=== PATIENT | male | born 1985 | race Caucasian/White ===

== ENCOUNTER 2017-01-07 19:16 | Emergency (ER) | payer SELFPAY ==
[2017-01-07] MEDS ORDERED: Sodium Chloride 0.9% 1,000 ML IV SCH (20:15)
--- NOTE | 2017-01-07 20:40 | EDM.PDOC ---
ED HPI GENERAL MEDICAL PROBLEM - General Chief Complaint: Abdominal Pain Stated Complaint: ABDOMINAL PAIN Time Seen by Provider: 01/07/17 19:41 Source of Information: Reports: Patient, RN Notes Reviewed History Limitations: Reports: No Limitations - History of Present Illness INITIAL COMMENTS - FREE TEXT/NARRATIVE: The patient states that he has had right upper quadrant abdominal pain for the past 3 months. It has been constant, but has been progressively worsening. He describes the pain as sharp and stabbing in character. He has not identified any modifiers. He has had nausea and vomiting, but no constipation, diarrhea, or urinary symptoms. He has had a subjective fever, although is afebrile here in the ED. The patient has not had a medical evaluation of this. He states that he does not have a PCP, and has not had a general physical examination for about 3 years. Additionally, the patient reports that he has been drinking approximately 1 L of vodka per day for the past 7 years, and he reports that he is currently homeless. Right Upper Abdomen Pain Score (Numeric/FACES): 9 - Related Data Allergies Allergy/AdvReac Type Severity Reaction Status Date / Time No Known Allergies Allergy Verified 01/07/17 19:41 Home Meds: Home Meds . [No Known Home Meds] 01/07/17 [History] Past Medical History - Past Surgical History HEENT Surgical History: Reports: Myringotomy w Tube(s) (bilateral), Tonsillectomy Social & Family History - Tobacco Use Smoking Status *Q: Current Every Day Smoker Years of Tobacco use: 20 Packs/Tins Daily: 0.4 - Caffeine Use Caffeine Use: Reports: None - Alcohol Use Alcohol Use History: Yes Days Per Week of Alcohol Use: 7 Number of Drinks Per Day: 23 Total Drinks Per Week: 161 Date of Last Drink: 01/07/17 Alcohol Use Frequency: Daily - Recreational Drug Use Recreational Drug Use: No - Living Situation & Occupation Living situation: Reports: Single, Other (Homeless) Occupation: Unemployed ED ROS GENERAL - Review of Systems Review Of Systems: See Below Constitutional: Reports: No Symptoms HEENT: Reports: Nosebleed Respiratory: Reports: Cough Cardiovascular: Reports: No Symptoms Endocrine: Reports: No Symptoms GI/Abdominal: Reports: Abdominal Pain (RUQ), Nausea, Vomiting : Reports: No Symptoms Musculoskeletal: Reports: No Symptoms Skin: Reports: No Symptoms Neurological: Reports: No Symptoms Psychiatric: Reports: No Symptoms Hematologic/Lymphatic: Reports: No Symptoms Immunologic: Reports: No Symptoms ED EXAM, GI/ABD - Physical Exam Exam: See Below Exam Limited By: No Limitations General Appearance: Alert, WD/WN, No Apparent Distress, Other (Strong smell of alcohol, but patient not clinically intoxicated) Eyes: Bilateral: Normal Appearance, EOMI Ears: Normal External Exam, Hearing Grossly Normal, Normal TMs Nose: Normal Inspection, No Blood Throat/Mouth: Normal Inspection, Normal Lips, Normal Voice, No Airway Compromise Head: Atraumatic, Normocephalic Neck: Normal Inspection, Full Range of Motion Respiratory/Chest: No Respiratory Distress, Lungs Clear, Normal Breath Sounds, No Accessory Muscle Use Cardiovascular: Normal Peripheral Pulses, Regular Rate, Rhythm, No Edema, No Gallop, No JVD, No Murmur, No Rub GI/Abdominal: Normal Bowel Sounds, Soft, No Organomegaly, No Distention, No Abnormal Bruit, No Mass, Tenderness (RUQ only. Nontender elsewhere.). No: Quijano's Sign (Male) Exam: Deferred Rectal (Males) Exam: Deferred Back Exam: Normal Inspection, Full Range of Motion, NT Extremities: Normal Inspection, Normal Range of Motion, No Pedal Edema, Normal Capillary Refill Neurological: Alert, Oriented, Normal Cognition, No Motor/Sensory Deficits Psychiatric: Normal Affect Skin Exam: Warm, Dry, Intact, Normal Color, No Rash Lymphatic: No Adenopathy EKG INTERPRETATION EKG Date: 01/07/17 Time: 21:46 Rhythm: other (Sinus tachycardia) Rate (beats/min): 102 [place]: normal P-wave: present QRS: normal ST-T: other (J-point elevation noted in V2, V3, V4.) QT: normal Comparison: NA - no prior EKG Course - Vital Signs Last Recorded V/S: Last Vital Signs Temp 36.6 C 01/07/17 19:36 Pulse 105 H 01/07/17 19:36 Resp 20 01/07/17 19:36 BP 133/99 H 01/07/17 19:36 Pulse Ox 93 L 01/07/17 19:36 - Orders/Labs/Meds Orders: Active Orders 24 hr Category Date Time Status EKG Documentation Completion [RC] STAT Care 01/07/17 21:35 Active Sodium Chloride 0.9% [Normal Saline] 1,000 ml Med 01/07/17 20:15 Active IV ASDIRECTED Medication Orders Sodium Chloride (Normal Saline) 1,000 mls @ 150 mls/hr IV ASDIRECTED ANTONIO Last Admin: 01/07/17 20:22 Dose: 150 mls/hr Labs: Laboratory Tests 01/07/17 01/07/17 01/07/17 Range/Units 20:10 20:10 20:10 WBC 6.56 (4.23-9.07) K/mm3 RBC 4.17 L (4.63-6.08) M/mm3 Hgb 15.1 (13.7-17.5) gm/L Hct 42.4 (40.1-51.0) % MCV 101.7 H (79.0-92.2) fl MCH 36.2 H (25.7-32.2) pg MCHC 35.6 H (32.2-35.5) g/dl RDW Std Deviation 52.4 H (35.1-43.9) fL Plt Count 194 (163-337) K/mm3 MPV 8.9 L (9.4-12.3) fl Neutrophils % (Manual) 50 (40-60) % Band Neutrophils % 0 (0-10) % Lymphocytes % (Manual) 44 H (20-40) % Atypical Lymphs % 0 % Monocytes % (Manual) 4 (2-10) % Eosinophils % (Manual) 2 (0.8-7.0) % Basophils % (Manual) 0 L (0.2-1.2) Platelet Estimate Adequate RBC Morph Comment Normal Sodium 145 (136-145) mEq/L Potassium 3.8 (3.5-5.1) mEq/L Chloride 105 (98-107) mEq/L Carbon Dioxide 26 (21-32) mEq/L Anion Gap 17.8 H (5-15) BUN 10 (7-18) mg/dL Creatinine 0.7 (0.7-1.3) mg/dL Est Cr Clr Drug Dosing 149.26 mL/min Estimated GFR (MDRD) > 60 (>60) mL/min BUN/Creatinine Ratio 14.3 (14-18) Glucose 96 (74-106) mg/dL Calcium 8.7 (8.5-10.1) mg/dL Total Bilirubin 0.7 (0.2-1.0) mg/dL AST 170 H (15-37) U/L ALT 111 H (16-63) U/L Alkaline Phosphatase 146 H (46-116) U/L Total Protein 7.6 (6.4-8.2) g/dl Albumin 3.6 (3.4-5.0) g/dl Globulin 4.0 gm/dL Albumin/Globulin Ratio 0.9 L (1-2) Lipase 165 (73-393) U/L TSH 3rd Generation 2.384 (0.358-3.74) uIU/mL Urine Color (Yellow) Urine Appearance (Clear) Urine pH (5.0-8.0) Ur Specific [place] (1.005-1.030) Urine Protein (Negative) Urine Glucose (UA) (Negative) Urine Ketones (Negative) Urine Occult Blood (Negative) Urine Nitrite (Negative) Urine Bilirubin (Negative) Urine Urobilinogen (0.2-1.0) Ur Leukocyte Esterase (Negative) Urine RBC (0-5) /hpf Urine WBC (0-5) /hpf Ur Epithelial Cells (0-5) /hpf Urine Bacteria (FEW) /hpf Urine Mucus (FEW) /hpf Salicylates (2.8-20) mg/dL Urine Opiates Screen (NEGATIVE) Ur Buprenorphine Scrn (NEGATIVE) Ur Oxycodone Screen (NEGATIVE) Urine Methadone Screen (NEGATIVE) Ur Propoxyphene Screen (NEGATIVE) Acetaminophen 0 L (10-30) ug/mL Ur Barbiturates Screen (NEGATIVE) Ur Tricyclics Screen (NEGATIVE) Ur Phencyclidine Scrn (NEGATIVE) Ur Amphetamine Screen (NEGATIVE) U Methamphetamines Scrn (NEGATIVE) U Benzodiazepines Scrn (NEGATIVE) U Cocaine Metab Screen (NEGATIVE) U Marijuana (THC) Screen (NEGATIVE) Ethyl Alcohol 0.34 (0.00) gm% 01/07/17 01/07/17 01/07/17 Range/Units 20:10 20:35 20:35 WBC (4.23-9.07) K/mm3 RBC (4.63-6.08) M/mm3 Hgb (13.7-17.5) gm/L Hct (40.1-51.0) % MCV (79.0-92.2) fl MCH (25.7-32.2) pg MCHC (32.2-35.5) g/dl RDW Std Deviation (35.1-43.9) fL Plt Count (163-337) K/mm3 MPV (9.4-12.3) fl Neutrophils % (Manual) (40-60) % Band Neutrophils % (0-10) % Lymphocytes % (Manual) (20-40) % Atypical Lymphs % % Monocytes % (Manual) (2-10) % Eosinophils % (Manual) (0.8-7.0) % Basophils % (Manual) (0.2-1.2) Platelet Estimate RBC Morph Comment Sodium (136-145) mEq/L Potassium (3.5-5.1) mEq/L Chloride (98-107) mEq/L Carbon Dioxide (21-32) mEq/L Anion Gap (5-15) BUN (7-18) mg/dL Creatinine (0.7-1.3) mg/dL Est Cr Clr Drug Dosing mL/min Estimated GFR (MDRD) (>60) mL/min BUN/Creatinine Ratio (14-18) Glucose (74-106) mg/dL Calcium (8.5-10.1) mg/dL Total Bilirubin (0.2-1.0) mg/dL AST (15-37) U/L ALT (16-63) U/L Alkaline Phosphatase (46-116) U/L Total Protein (6.4-8.2) g/dl Albumin (3.4-5.0) g/dl Globulin gm/dL Albumin/Globulin Ratio (1-2) Lipase (73-393) U/L TSH 3rd Generation (0.358-3.74) uIU/mL Urine Color Yellow (Yellow) Urine Appearance Clear (Clear) Urine pH 6.0 (5.0-8.0) Ur Specific [place] 1.015 (1.005-1.030) Urine Protein Negative (Negative) Urine Glucose (UA) Negative (Negative) Urine Ketones Negative (Negative) Urine Occult Blood Negative (Negative) Urine Nitrite Negative (Negative) Urine Bilirubin Negative (Negative) Urine Urobilinogen 0.2 (0.2-1.0) Ur Leukocyte Esterase Negative (Negative) Urine RBC Not seen (0-5) /hpf Urine WBC 0-5 (0-5) /hpf Ur Epithelial Cells Not seen (0-5) /hpf Urine Bacteria Not seen (FEW) /hpf Urine Mucus Not seen (FEW) /hpf Salicylates 3.1 (2.8-20) mg/dL Urine Opiates Screen Negative (NEGATIVE) Ur Buprenorphine Scrn Negative (NEGATIVE) Ur Oxycodone Screen Negative (NEGATIVE) Urine Methadone Screen Negative (NEGATIVE) Ur Propoxyphene Screen Negative (NEGATIVE) Acetaminophen (10-30) ug/mL Ur Barbiturates Screen Negative (NEGATIVE) Ur Tricyclics Screen Negative (NEGATIVE) Ur Phencyclidine Scrn Negative (NEGATIVE) Ur Amphetamine Screen Negative (NEGATIVE) U Methamphetamines Scrn Negative (NEGATIVE) U Benzodiazepines Scrn Negative (NEGATIVE) U Cocaine Metab Screen Negative (NEGATIVE) U Marijuana (THC) Screen Negative (NEGATIVE) Ethyl Alcohol (0.00) gm% 01/08/17 Range/Units 05:04 WBC (4.23-9.07) K/mm3 RBC (4.63-6.08) M/mm3 Hgb (13.7-17.5) gm/L Hct (40.1-51.0) % MCV (79.0-92.2) fl MCH (25.7-32.2) pg MCHC (32.2-35.5) g/dl RDW Std Deviation (35.1-43.9) fL Plt Count (163-337) K/mm3 MPV (9.4-12.3) fl Neutrophils % (Manual) (40-60) % Band Neutrophils % (0-10) % Lymphocytes % (Manual) (20-40) % Atypical Lymphs % % Monocytes % (Manual) (2-10) % Eosinophils % (Manual) (0.8-7.0) % Basophils % (Manual) (0.2-1.2) Platelet Estimate RBC Morph Comment Sodium (136-145) mEq/L Potassium (3.5-5.1) mEq/L Chloride (98-107) mEq/L Carbon Dioxide (21-32) mEq/L Anion Gap (5-15) BUN (7-18) mg/dL Creatinine (0.7-1.3) mg/dL Est Cr Clr Drug Dosing mL/min Estimated GFR (MDRD) (>60) mL/min BUN/Creatinine Ratio (14-18) Glucose (74-106) mg/dL Calcium (8.5-10.1) mg/dL Total Bilirubin (0.2-1.0) mg/dL AST (15-37) U/L ALT (16-63) U/L Alkaline Phosphatase (46-116) U/L Total Protein (6.4-8.2) g/dl Albumin (3.4-5.0) g/dl Globulin gm/dL Albumin/Globulin Ratio (1-2) Lipase (73-393) U/L TSH 3rd Generation (0.358-3.74) uIU/mL Urine Color (Yellow) Urine Appearance (Clear) Urine pH (5.0-8.0) Ur Specific [place] (1.005-1.030) Urine Protein (Negative) Urine Glucose (UA) (Negative) Urine Ketones (Negative) Urine Occult Blood (Negative) Urine Nitrite (Negative) Urine Bilirubin (Negative) Urine Urobilinogen (0.2-1.0) Ur Leukocyte Esterase (Negative) Urine RBC (0-5) /hpf Urine WBC (0-5) /hpf Ur Epithelial Cells (0-5) /hpf Urine Bacteria (FEW) /hpf Urine Mucus (FEW) /hpf Salicylates (2.8-20) mg/dL Urine Opiates Screen (NEGATIVE) Ur Buprenorphine Scrn (NEGATIVE) Ur Oxycodone Screen (NEGATIVE) Urine Methadone Screen (NEGATIVE) Ur Propoxyphene Screen (NEGATIVE) Acetaminophen (10-30) ug/mL Ur Barbiturates Screen (NEGATIVE) Ur Tricyclics Screen (NEGATIVE) Ur Phencyclidine Scrn (NEGATIVE) Ur Amphetamine Screen (NEGATIVE) U Methamphetamines Scrn (NEGATIVE) U Benzodiazepines Scrn (NEGATIVE) U Cocaine Metab Screen (NEGATIVE) U Marijuana (THC) Screen (NEGATIVE) Ethyl Alcohol 0.14 (0.00) gm% Meds: Medications Generic Name Dose Route Start Last Admin Trade Name Freq PRN Reason Stop Dose Admin Sodium Chloride 1,000 mls @ 150 mls/hr 01/07/17 20:15 01/07/17 20:22 Normal Saline IV 150 mls/hr ASDIRECTED ANTONIO Administration Discontinued Medications Generic Name Dose Route Start Last Admin Trade Name Freq PRN Reason Stop Dose Admin Acetaminophen 650 mg 01/08/17 06:27 01/08/17 06:31 Tylenol PO 01/08/17 06:28 650 mg NOW ONE Administration Ketorolac Tromethamine 30 mg 01/07/17 22:08 01/07/17 22:12 Toradol IVPUSH 01/07/17 22:09 30 mg ONETIME STA Administration - Re-Assessments/Exams Free Text/Narrative Re-Assessment/Exam: 01/07/17 21:37 Because the patient reported that he is homeless, I asked social work msw to evaluate the patient, however, in the meantime, the patient's alcohol level has returned substantially elevated at 0.34. Eli from social work msw has evaluated the patient. When I spoke with the patient earlier, and he reported that he drinks 1 L of vodka per day, I asked him if he was interested in alcohol treatment, and he shook his head, no. He told Eli, however, that he would be interested, indeed, that is why he is here. He also told her that he that he feels suicidal at times, although not currently. As the patient is intoxicated, we are not going to act on his suicidal ideation at this time. We will keep him in the ED overnight to allow him to sober up, then reevaluate him in the morning. Additionally, we can see if he develops any symptoms of alcohol withdraw. None are present at this time. Although I feel it is unlikely, in order to facilitate any potential psychiatric hospitalization, I have added an ECG, acetaminophen level, salicylate level, and TSH level to the patient's workup tonight. [facility] does not have a homeless care home and Eli has left information for [facility] in [place], should the patient be interested in that in the morning. 01/08/17 06:25 Repeat alcohol level at 05:04 is 0.14, down from 0.34 at 20:10 last night. This is a drop of 0.022 mg/dl/hr. At this rate of decline, his alcohol level will be 0.08 at 7:47 this morning and 0 at 11:25. He is showing no signs of alcohol withdrawal, such as tremulousness, diaphoresis, tachycardia, or insomnia , as he has been sleeping well. He does report a headache and return of his right upper quadrant abdominal pain. He denies anxiety or nausea. From an alcohol withdrawal standpoint, he is not at increased risk of developing significant alcohol withdraw, therefore he does not need to be hospitalized for detox. The patient states that he is interested in getting professional help for his alcohol abuse. I am recommending that he abstain from alcohol, then present to [facility] on 01/11/2017 (they are closed on Tuesday01/10/17 for ). The patient is agreeable. If he abstains from alcohol and develops significant symptoms, he should return to the ED for reevaluation. From a depression standpoint, the patient admits that he has been depressed, however, he has not formulated any specific suicide plan. The patient does not require acute psychiatric hospitalization, however, [facility] can help the patient in that regard, as well. With respect to the patient's right upper quadrant abdominal pain, I suspect that that is related to his drinking. I will give him the number for Dr. Carlson , with whom he can followup if he stops drinking, but his pain continues. Dr. Carlson would be able to perform an EGD and other tests to evaluate the cause of the patient's pain. The patient is agreeable with this, as well. With respect to the patient's homelessness situation, he accepted the information that Eli had left regarding [facility] in [place]. I will order Tylenol for the patient's headache. Acetaminophen in the presence of alcohol was once thought to be a toxic combination, however, new evidence has shown that acetaminophen is not toxic when given at therapeutic doses, even in alcoholic patients. In this case, I prefer acetaminophen over ibuprofen to treat the patient's headache, as his upper abdominal pain may be related to gastritis or an ulcer. I will proceed with discharging the patient at this time, in preparation for change of shift, however, the patient's nurse will make sure that the patient gets breakfast at 07:00 before leaving. Departure - Departure Time of Disposition: 07:00 Disposition: Home, Self-Care 01 Condition: fair Clinical Impression: Alcohol intoxication, Right upper quadrant abdominal pain of unknown etiology, Depression, Homeless - Discharge Information Referrals: PCP,None [Primary Care Provider] - Martha Carlson MD [Physician] - Forms: ED Department Discharge Additional Instructions: You were seen in the emergency room for upper right abdominal pain. Workup in the ER included blood work, urine tests, and an ECG. Your workup revealed mildly elevated transaminases (liver enzymes), most likely due to excessive alcohol intake, and an alcohol level substantially elevated at 0.34, more than four times in the upper legal limit for driving. The remainder of your workup was unremarkable. The cause of your abdominal pain is not clear, although it is suspected that it may be related to your excessive drinking. We are recommending that you abstain from drinking, then present to [facility] on 01/11/2017, where they can help you with your excessive drinking and your depression. If your abdominal pain continues despite not drinking, please followup with the Surgeon Dr. Martha Carlson for further evaluation. If any other problems, including significant withdrawal symptoms, please do not hesitate to return to the ER. - My Orders Last 24 Hours: My Active Orders 01/07/17 20:15 Sodium Chloride 0.9% [Normal Saline] 1,000 ml IV ASDIRECTED 01/07/17 21:35 EKG Documentation Completion [RC] STAT - Assessment/Plan Last 24 Hours: My Active Orders 01/07/17 20:15 Sodium Chloride 0.9% [Normal Saline] 1,000 ml IV ASDIRECTED 01/07/17 21:35 EKG Documentation Completion [RC] STAT
[2017-01-07] MEDS ORDERED: Ketorolac 30 MG/ML SDV IVPUSH STA (22:08)
[2017-01-08] MEDS ORDERED: Ibuprofen 600 MG Tab PO ONE (06:25)
[2017-01-08] MEDS ORDERED: Acetaminophen 325 MG Tab PO ONE (06:27)
[2017-01-08 09:01] VITALS: BP 128/88
== END 2017-01-08 09:00 | disposition home or self-care (01) ==
LOC: JD.ED 19:16
DX: R10.11 Right upper quadrant pain (principal); F17.210 Nicotine dependence, cigarettes, uncomplicated; F10.129 Alcohol abuse with intoxication, unspecified; F32.9 Major depressive disorder, single episode, unspecified; Z98.890 Other specified postprocedural states; Z59.0 Homelessness
CPT/HCPCS: 36415; 80053; 80306; 81001; 83690; 84443; 85025; 93005; 96361; 96374; 99285; A9270; G0480; J1885; J7040; 99284